=== PATIENT | female | born 2000 | race Caucasian/White ===

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

== ENCOUNTER 2024-01-12 01:12 | Day surgery (SDC) | payer BC, SELFPAY ==
[2023-12-22 12:49] VITALS: BMI 32.5
[2024-01-12 10:00] VITALS: BP 108/65; PULSE 81; RESP 18; TEMP 36.4; O2SAT 100
--- NOTE | 2024-01-12 10:06 | WPDANESEPPF ---
Anes - Initial Pre Proc Eval Procedure: Operation Date: 01/12/24 11:00 Proposed Procedures p Colonoscopy - Dakota Lopes MD Date/Time: 01/12/24 10:06 Surgeon: Dakota Lopes MD Pre Op Diagnosis: Hemorrhage of anus/rectum Patient Data Age: 24 Gender: F Height: 1.63 m Weight: 86.3 kg Last Vital Signs Temp 97.5 F L 01/12/24 10:00 Pulse 81 01/12/24 10:00 Resp 18 01/12/24 10:00 BP 108/65 01/12/24 10:00 Pulse Ox 100 01/12/24 10:00 O2 Del Method Room Air 01/12/24 10:00 Allergies Allergy/AdvReac Type Severity Reaction Status Date / Time No Known Allergies Allergy Verified 01/12/24 09:55 Home Medications Medication Instructions Recorded Confirmed Type ondansetron 8 mg disintegrating 8 mg PO Q8H PRN nausea and 12/25/22 01/12/24 Rx tablet vomiting #30 tabs ramelteon 8 mg tablet 8 mg PO QHS PRN sleep #90 tabs 12/25/22 01/12/24 Rx sertraline 50 mg tablet 75 mg PO DAILY #90 tabs 09/29/23 01/12/24 Rx Patient hx anesthesia problems: none Family hx anesthesia problems: none Results Review: All pre-operative results and documents have been reviewed as part of the pre-operative evaluation. [facility] Past Medical History Medical History Anxiety IBS (irritable bowel syndrome) Family History Family History Father Hypertension Mother Breast cancer Depression Grandparent Breast cancer Carcinoma of colon Social History Social History Smoking status: Never smoker Second hand tobacco smoke exposure: Yes Alcohol intake: never Substance use: never Substance use type: does not use Lack of Transportation: No Lack of Food: Never True Current Housing: I Have Housing Concerned About Future Housing: No Difficulty Paying Gas/Electric Bills: No Difficulty Paying for Meds: No Currently Unemployed: No Education: High School Diploma/GED Difficulty w/ Childcare or Family Care: No Living arrangements: with family Spiritual care concerns: No Anes - Eval Final PreProcedure Day of Procedure 01/12/24 10:06 Patient weight: obese Heart: regular rate and rhythm Lungs: clear to auscultation Airway: Mallampati scale class II Neurological: alert and oriented Last oral intake: >/= 8 hours ASA classification: II Emergent: no Anesthetic plan: proceed Anesthesia type and monitoring: general GIVS and standard monitoring Results Review: All pre-operative results and documents have been reviewed as part of the pre-operative evaluation. Informed Consent: The patient's anesthetic plan and its attendant risks and benefits were discussed with the patient/family/POA. Questions were solicited and answers provided to the satisfaction of the patient/family/POA.
[2024-01-12] MEDS: LACTATED RINGERS 1,000 ML 150 ML IV CONT (10:10)
--- NOTE | 2024-01-12 10:21 | PM.HPGS ---
History of Present Illness History of Present Illness Consent: Risks, benefits, and alternatives have been discussed and questions answered. Patient agrees to proceed with procedure. Chief complaint: Hemorrhage of anus/rectum Narrative: Patrice Alfaro is a 24 year old female here for first colonoscopy, h/o IBS and had rectal bleeding. Review of Systems Review of Systems: All systems reviewed & are unremarkable except as noted in HPI and below PMFSH Past Medical History Medical History Anxiety IBS (irritable bowel syndrome) Family History Family History Father Hypertension Mother Breast cancer Depression Grandparent Breast cancer Carcinoma of colon Social History Social History Smoking status: Never smoker Second hand tobacco smoke exposure: Yes Alcohol intake: never Substance use: never Substance use type: does not use Lack of Transportation: No Lack of Food: Never True Current Housing: I Have Housing Concerned About Future Housing: No Difficulty Paying Gas/Electric Bills: No Difficulty Paying for Meds: No Currently Unemployed: No Education: High School Diploma/GED Difficulty w/ Childcare or Family Care: No Living arrangements: with family Spiritual care concerns: No Meds Home Medications and Allergies Home Medications Medication Instructions Recorded Confirmed Type ondansetron 8 mg disintegrating 8 mg PO Q8H PRN nausea and 12/25/22 01/12/24 Rx tablet vomiting #30 tabs ramelteon 8 mg tablet 8 mg PO QHS PRN sleep #90 tabs 12/25/22 01/12/24 Rx sertraline 50 mg tablet 75 mg PO DAILY #90 tabs 09/29/23 01/12/24 Rx Allergies Allergy/AdvReac Type Severity Reaction Status Date / Time No Known Allergies Allergy Verified 01/12/24 09:55 Vital Signs Vital Signs - 24 hr 01/12/24 10:00 Temperature 97.5 F L Pulse Rate 81 Respiratory Rate 18 Blood Pressure 108/65 Pulse Oximetry 100 Oxygen Delivery Room Air Exam Const: General: comfortable and no acute distress HENMT: Face/Nose/Sinus: Normal nares present Eyes: General: appearance normal, both eyes and all related structures Neck: Neck: no JVD Resp: Auscultation: clear to auscultation bilaterally Cardio: Rate: regular rate Rhythm: regular rhythm GI: Inspection: non-distended GI Palp: Yes Soft to palpation Skin: General skin exam: normal color Neuro: General: gait normal Speech: normal speech Extrem: General: normal to inspection Psych: Mental Status: mental status grossly normal Assessment and Plan Assessment and plan (1) IBS (irritable bowel syndrome): Code(s): K58.9 - Irritable bowel syndrome without diarrhea Status: Acute Assessment and Plan: colonoscopy (2) Rectal bleeding: Code(s): K62.5 - Hemorrhage of anus and rectum Status: Acute
[2024-01-12 10:40] VITALS: BP 97/61; PULSE 82; RESP 18; O2SAT 98
[2024-01-12 10:40] LABS: BEDSIDEPREGUCG Negative (Negative)
[2024-01-12 10:50] VITALS: BP 104/61; PULSE 80; RESP 18; O2SAT 100
[2024-01-12 11:00] VITALS: BP 101/63; PULSE 73; RESP 14; O2SAT 100
== END 2024-01-12 11:10 | disposition home or self-care (01) ==
PROVIDERS: PCP Nurse Practitioner Family; Visit Provider Internal Medicine Gastroenterology
PROC: 0DJD8ZZ Inspection of Lower Intestinal Tract, Via Natural or Artificial Opening Endoscopic (ICD-10-PCS; CPT 45378; principal; 2024-01-12 11:00)
DX: K58.9 Irritable bowel syndrome, unspecified (principal); K64.8 Other hemorrhoids; F41.9 Anxiety disorder, unspecified; E66.9 Obesity, unspecified; Z68.32 Body mass index [BMI] 32.0-32.9, adult
CPT/HCPCS: 45378; J1100; J2001; J2405; J2704; J7120

== ENCOUNTER 2024-10-10 13:39 | Outpatient (CLI) | payer BC, SELFPAY ==
--- NOTE | ~2024-10-10 | CT_ITS ---
CT soft tissue neck wo con Ordering provider: Fara Milton APRN History: 24 years Female with . R59.9 - Enlarged lymph nodes, unspecified . Comparison: None. Technique: CT soft tissues neck was performed with contrast. . Automated exposure control and iterat albino reconstruction technique were employed. The dose-length product was 554.12 mGy-cm. Findings: LOWER HEAD: The visualized brain parenchyma, optic globes/orbits and mastoids are normal. The visua lized paranasal sinuses are well aerated. SALIVARY GLANDS: Normal. THYROID: Normal. SUPRAHYOID DEEP SPACES: lymph node is seen in the left posterior triangle measuring 8 mm. The largest on the right side measures 3 mm. Small occipital lymph nodes are also noted. Left parapharyngeal lymph node is seen measuring 9.7 mm. Left submandibular lymph node is seen measuring 1.2 cm. Right submandibular lymph nodes are noted with the largest measures 8 mm. Small supraclavicular lymph nodes are seen. CAROTID ARTERIES: Normal. JUGULAR VEINS: Normal. TONSILS: Normal. ORAL CAVITY: Partially obscured by dental amalgam but normal as visualized. PHARYNX, LARYNX AND TRACHEA: Patent and normal. No prevertebral soft tissue swelling. SUPERFICIAL SOFT TISSUES: Normal. No lymphadenopathy or neck mass. THORACIC INLET/VISUALIZED UPPER CHEST: Normal. SKELETAL: Normal. IMPRESSION: 1. Normal CT neck. 2. No significant lymphadenopathy is seen. Reviewed, dictated and finalized at location A.
== END 2024-10-10 13:40 | disposition home or self-care (01) ==
PROVIDERS: PCP Nurse Practitioner Family; Visit Provider Nurse Practitioner Family
DX: R59.9 Enlarged lymph nodes, unspecified (principal); R59.0 Localized enlarged lymph nodes
CPT/HCPCS: 70490